=== PATIENT | female | born 1990 | race African-American/Black ===

== ENCOUNTER 2017-09-29 13:02 | Emergency (ER) | payer MEDICAID, OTHER | END 2017-09-29 14:32 | disposition home or self-care (01) | LOC: ERS 13:02 | DX: O98.912 Unspecified maternal infectious and parasitic disease complicating pregnancy, second trimester (principal); J10.1 Influenza due to other identified influenza virus with other respiratory manifestations; O99.332 Smoking (tobacco) complicating pregnancy, second trimester; F17.210 Nicotine dependence, cigarettes, uncomplicated; Z3A.20 20 weeks gestation of pregnancy | CPT/HCPCS: 87804; 99283 ==

== ENCOUNTER 2017-11-13 16:50 | Day surgery (SDC) | payer OTHER ==
[2017-11-13 17:18] VITALS: BP 101/58; TEMP 98.8; BMI 29.9
[2017-11-13] MEDS ORDERED: Ondansetron HCl/PF 4 MG/2 ML Vial IVP PRN (18:24)
[2017-11-13] MEDS ORDERED: Lactated Ringer's 1,000 ML IV SCH (18:30)
--- NOTE | 2017-11-13 18:35 | PDOC.LDHP ---
Labor and Delivery H&P Chief complaint: contractions HPI: 26 yo female at 26 weeks who presents with contractions every 3 -4 minutes for the last 2 hours. She has been having intermittent contractions this week before this. Today she has been busy, spending lots of time outside without much to eat or drink. She has not had bleeding or discharge. She has been feeling baby move normally. no fever or dysuria. Current gestational age (weeks): 26 (+4) Due date: 02/15/18 Dating criteria: last menstrual period, first trimester ultrasound Grav: 4 Para: 2 (2011) OB History Details: Patient does not have [facility] chart available, but she says she has had uncomplicated Current complications: none Abnormal US findings: No (per patient) Past Medical History: none - Physical Exam Vital signs reviewed and normal: yes General: NAD, resting Heart: RRR Lungs: nonlabored breathing Abdomen: gravid Extremeties: no edema FHT: category 1 [place] contractions every: 3-4 - Vaginal Exam cm dilated: 0 (fingertip) Effacement: 0% Station: -3 - OB Labs Blood type: A RH: positive Antibody Screen: negative HIV: negative RPR: negative HEPSAg: negative 1 hour GCT: negative (per patient) GBS: unknown - Assessment 1. contractions- Patient is having symptomatic and contractions on the monitor. This is likely 2/2 to dehydration. She has not made significant cervical change, so this is not labor. VP3 and UA pending as well. will treat dehydration/NV as below. We will send fibronectin and monitor ctx. If she begins to show more signs of labor we will initiate steroids and likely tocolysis. 2. Dehydration with NV- treat with IV zofran and IV bolus 1-2 L. can take po when she feels like she can tolerate it. - Plan Plan: admit to L&D, observation in L&D <Azam Leo - Last Filed: 11/13/17 18:56> <Ramírez Marks - Last Filed: 11/14/17 07:36> Allergies/Adverse Reactions: Allergies Allergy/AdvReac Type Severity Reaction Status Date / Time hydrocodone bitartrate Allergy Intermediate Anxiety Verified 11/13/17 17:18 [From Vicodin] Review of Systems - Review of Systems Constitutional: reports: no symptoms reported Respiratory: reports: no symptoms reported Cardiology: reports: no symptoms reported Gastrointestinal/Abdominal: reports: no symptoms reported Genitourinary: reports: no symptoms reported Musculoskeletal: reports: back pain Skin: reports: no symptoms reported Neurological: reports: no symptoms reported Endocrine: reports: no symptoms reported Hematologic/Lymphatic: reports: no symptoms reported All Other Systems: Reviewed and Negative <Ramírez Marks - Last Filed: 11/14/17 07:36> Attending Addendum - Attending Addendum Date/Time: 11/14/1736 I personally evaluated the patient and discussed the management with Dr. Leo I agree with the History, Examination, Assessment and Plan documented above with any addition or exceptions noted below. <Ramírez Marks Filed: 11/14/17 07:36>
[2017-11-13 18:40] LABS: Bilirubin Negative (Negative); Blood, Urine Negative (Negative); Clarity CLEAR (Clear); Glucose, Urine (Dipstick) Negative (Negative); Leukocyte Negative (Negative); Nitrite Negative (Negative); Protein, Urine (Dipstick) Negative (Neg-Trace); Specific Gravity, Urine 1.012 (1.002-1.036); pH, Urine 6.5 (5.0-9.0)
[2017-11-13 18:41] LABS: Bacteria/HPF None Seen HPF (None Seen); Hyaline Casts/LPF 0-3 HYALINE CAST LPF (0-3 Hyaline); Pathc Cast-AUWi Flag 0.43 (0-2.49); RBC/HPF 0-3 HPF (0-3); Squamous Epithelial 0-3 HPF (0-3); WBC/HPF None Seen HPF (0-3)
[2017-11-13 19:05] LABS: FFN Internal QC Analyzer PASS (PASS); FFN Internal QC Cassette PASS (PASS); Fetal Fibronectin Negative (Negative)
[2017-11-13] MEDS ORDERED: Acetaminophen 325 MG TAB PO SCH (20:45)
--- NOTE | 2017-11-13 20:55 | PDOC.EVN ---
Event Note - Event Note Event Note: Patient's ctx spaced out and eventually stopped. She tolerated PO. UA and fibronectin were negative. Appropriate for discharge. She will follow up at [facility].
== END 2017-11-13 20:39 | disposition home or self-care (01) ==
LOC: L&D/OP 16:50
PROVIDERS: ATTEND Obstetrics & Gynecology
DX: O47.02 False labor before 37 completed weeks of gestation, second trimester (principal); O99.89 Other specified diseases and conditions complicating pregnancy, childbirth and the puerperium; E86.0 Dehydration; Z3A.26 26 weeks gestation of pregnancy; Z79.899 Other long term (current) drug therapy; Z88.5 Allergy status to narcotic agent
CPT/HCPCS: 81001; 82731; 87480; 87510; 87660; J2405

== ENCOUNTER 2017-12-07 20:15 | Day surgery (SDC) | payer OTHER ==
[2017-12-07 20:48] VITALS: BP 105/60; TEMP 98.5; BMI 29.9
--- NOTE | 2017-12-07 21:45 | PDOC.LDHP ---
Labor and Delivery H&P Chief complaint: abdominal pain HPI: 27 yo @ 30.2 weeks dated by LMP c/w 1T US comes in after having about 2 hours of cramping pain in her pelvis and having a shooting pain down her Right leg. Says pain felt like some pressure. Says she didn't drink much water throughout the day. Says pain has since resolved and she is feeling like she wants to go home. Denies any vaginal discharge, irritation, itching. Denies any urinary sx's or burning with urination. Denies any N/V/D/C. Denies any headache. Denies any vision changes. Denies any numbness or tingling Current gestational age (weeks): 30 (2 days) Due date: 02/13/18 Dating criteria: last menstrual period Grav: 3 Para: 2 OB History Details: Tobacco Abuse Abnormal US findings: No Past Medical History: None Current medications: pre- vitamins Previous surgical history: none Social history: tobacco use (3-4 cigs a day) - Physical Exam General: NAD, resting Heart: RRR Lungs: CTAB Abdomen: NTTP Extremeties: no edema FHT: category 1 - OB Labs Blood type: A RH: positive Antibody Screen: negative HIV: negative RPR: negative HEPSAg: negative 1 hour GCT: negative GBS: unknown Rubella: immune - Assessment Round Ligament Pain - Plan Plan: observation in L&D -: @30.2 weeks comes in with pelvic pain and leg pain. Patient having Round ligament pain vs Ctx likely. Pain resolved at this time. Encouraged increased hydration. Advised can take tylenol for pain as needed. Pain resolved and patient would like to go home. Denies any vaginal or urinary sx's. No need for UA or VP3 at this time Tobacco abuse -counseled on cessation <Fazal Carias - Last Filed: 12/07/17 21:38> <Carmenza Arshad - Last Filed: 12/08/17 07:48> Allergies/Adverse Reactions: Allergies Allergy/AdvReac Type Severity Reaction Status Date / Time hydrocodone bitartrate Allergy Intermediate Anxiety Verified 12/07/17 21:04 [From Vicodin] Attending Addendum - Attending Addendum Date/Time: 12/08/17 2068 I personally evaluated the patient and discussed the management with Dr. Carias on 12/08/17. I agree with the History, Examination, Assessment and Plan documented above with any addition or exceptions noted below. Patient initially presented with right-sided sciatica and pelvic pressure, which have now resolved. NST reactive. +FM. Potentially due to positional changes of fetus. Denies dysuria, vaginal discharge. Now that she is asymptomatic, will discharge home with close follow up. RTC precautions discussed. <Carmenza Arshad - Last Filed: 12/08/17 07:48>
== END 2017-12-07 21:45 | disposition home or self-care (01) ==
LOC: L&D/OP 20:15
PROVIDERS: ATTEND Family Medicine
DX: O99.89 Other specified diseases and conditions complicating pregnancy, childbirth and the puerperium (principal); R10.2 Pelvic and perineal pain; O99.333 Smoking (tobacco) complicating pregnancy, third trimester; F17.210 Nicotine dependence, cigarettes, uncomplicated; Z3A.30 30 weeks gestation of pregnancy; Z88.5 Allergy status to narcotic agent; Z79.899 Other long term (current) drug therapy

== ENCOUNTER 2018-01-18 00:18 | Inpatient (IN) | payer OTHER ==
[2018-01-18 00:57] VITALS: BMI 31.3
[2018-01-18] MEDS: Lactated Ringer's 1,000 ML IV SCH ×2 (01:50→06:30)
[2018-01-18] MEDS ORDERED: Promethazine HCl 25 MG/ML VIAL IM PRN ×4 (01:55→10:38)
[2018-01-18] MEDS ORDERED: Acetaminophen 500 MG TAB PO PRN (01:55)
[2018-01-18] MEDS ORDERED: Ondansetron HCl/PF 4 MG/2 ML Vial IVP PRN ×4 (01:55→10:38)
[2018-01-18] MEDS ORDERED: Docusate 100 MG CAP PO PRN (01:55)
[2018-01-18] MEDS ORDERED: Lidocaine 1% (PF) 30 ML VIAL SC PRN ×2 (02:06→02:27)
[2018-01-18] MEDS ORDERED: NS / Oxytocin 40 units/1000ml 1,000 ML IV PRN ×2 (02:06→02:27)
[2018-01-18] MEDS ORDERED: NS w/ Oxytocin 10 units 500 ML IV SCH (02:15)
[2018-01-18 02:30] LABS: Hemoglobin 11.3 g/dL (12.0-16.0); Mean Corpuscular HGB CONC 35.2 g/dL (32.0-36.0); Mean Corpuscular Volume 85.1 fl (81.0-99.0); Mean Platelet Volume 11.3 fL (7.4-10.4); Platelet Count 118 thou/uL (130-400); RBC Distribution Width 12.7 % (11.5-14.5); Red Blood Cell (RBC) Count 3.76 mill/uL (4.20-5.40); White Blood Cell (WBC) Count 10.6 thou/uL (4.8-10.8)
[2018-01-18] MEDS ORDERED: Betamet Acet/Betamet Na Ph 30 MG/5 ML VIAL IM SCH (02:30)
[2018-01-18] MEDS ORDERED: Penicillin G Potassium 5 MILL.UNITS in Sodium Chloride 0.9% 100 ML IVPB SCH (02:30)
--- NOTE | 2018-01-18 02:58 | PDOC.LDHP ---
Labor and Delivery H&P Chief complaint: contractions, loss of fluid HPI: Patient presents to L&D floor 1 hour after large gush of fluids. She states she was feeling contractions every 5 min apart for about one hour than had a large carrillo of clear fluid with no blood. After this the contractions spaced out. She is still feeling baby moving. No bleeding. No dysuria. No headache, scotoma, SOB , or swelling. She was see at [facility] today and started on iron as well as treated for yeast infection. Dates by LMP confirmed by 1st trimester US. 2T US shows no anomalies, posterior placenta. Due date: 02/13/18 Dating criteria: last menstrual period, first trimester ultrasound Grav: 3 Para: 2 OB History Details: 2 term vaginal deliveries without complications per mother largest baby 8lb 2oz Current complications: none Abnormal US findings: No Past Medical History: Denies significant PMH Current medications: pre-bang vitamins, iron Previous surgical history: none Social history: tobacco use (quit early in per her report) - Physical Exam Vital signs reviewed and normal: yes General: NAD Heart: RRR Lungs: CTAB Abdomen: NTTP Extremeties: no edema FHT: category 1 - Vaginal Exam cm dilated: 3 Effacement: 50% Station: -3 - OB Labs Blood type: A RH: positive Antibody Screen: negative HIV: negative RPR: negative HEPSAg: negative 1 hour GCT: negative GBS: unknown Urine drug screen: negative Rubella: immune - Assessment L&D Assessment: premature rupture of membranes pre-term pre-labor ROM - Plan Plan: admit to L&D, anesthesia consult for pain management -: 26 yo female at 36 wk 2 days with prelabor ROM. Will admit and induce patient as risk of infection out-weighs benefits of waiting for spontaneous labor. # Pre-term Pre-labor ROM - pitocin for induction/augmentation - Penicillin as GBS status unknown - POC US shows cephalic presentation, posterior-fundal placenta - Betamethasone 12mg q 24 hr x2 doses - continuous monitoring - consult anesthesia for epidural placement - /-3 on presentation to L & D - LR 100 ml/hr - check amnisure to confirm ROM <Gamaliel Szymanski - Last Filed: 01/18/18 03:07> <Christina Damon - Last Filed: 01/18/18 07:29> Allergies/Adverse Reactions: Allergies Allergy/AdvReac Type Severity Reaction Status Date / Time hydrocodone bitartrate Allergy Intermediate Anxiety Verified 01/18/18 00:48 [From Vicodin] Attending Addendum - Attending Addendum Date/Time: 01/18/18724 I personally evaluated the patient and discussed the management with Dr. Szymanski. I agree with the History, Examination, Assessment and Plan documented above with any addition or exceptions noted below. 27 yo @ 36w2d dated by LMP and 11w3d US presenting with PPROM Steroids for lung maturity PCN for GBS unknown Augmentation pitocin per protocol Cephalic by bedside US Anticipate <Christina Damon - Last Filed: 01/18/18 07:29>
[2018-01-18 03:03] LABS: Hep B Surf Ag Non-Reactive S/CO (NonReactive)
[2018-01-18 04:29] LABS: Amnisure Test RUPTURE DETECTED (No Rupture)
[2018-01-18 04:30] LABS: Amnisure Internal Control QC ACCEPTABLE (ACCEPTABLE)
[2018-01-18] MEDS ORDERED: Butorphanol Tartrate 1 MG/ML VIAL SLOW IVP PRN (05:38)
[2018-01-18] MEDS ORDERED: Ondansetron ODT 4 MG TAB PO PRN (05:52)
[2018-01-18] MEDS ORDERED: DISCONTINUE ALL PREVIOUS NARCOTICS FS SCH (06:15)
[2018-01-18] MEDS ORDERED: Bupivacaine 0.5% 20 ML, fentaNYL Citrate/PF 400 MCG in Sodium Chloride 0.9% 72 ML EPIDURAL SCH (06:15)
[2018-01-18 06:16] LABS: Syphilis Antibody Nonreactive (Nonreactive); Syphilis Antibody Index 0.06 S/CO (<1.00 Non-Reactive)
[2018-01-18] MEDS: Penicillin G 2.5 MILL.units 2.5 MILL.UNITS in Premix Bag 1 BAG IVPB SCH ×2 (07:02→10:58)
[2018-01-18] MEDS ORDERED: Lactated Ringer's 500 ML IV PRN (07:04)
[2018-01-18] MEDS ORDERED: Naloxone HCl 0.4 mg/ml Vial IVP PRN ×2 (07:04)
[2018-01-18] MEDS ORDERED: ePHEDrine/0.9% NaCl/PF SYRINGE 50 mg/10 ml SLOW IVP PRN (07:04)
[2018-01-18] MEDS ORDERED: diphenhydrAMINE 50 MG/ML VIAL IVP PRN (07:04)
[2018-01-18] MEDS ORDERED: Eucerin (Mineral Oil/Petrolatum,White) 30 gm Jar TOP PRN (07:04)
[2018-01-18] MEDS ORDERED: Acetaminophen 325 MG TAB PO PRN (07:04)
[2018-01-18] MEDS ORDERED: Fentanyl 4mcg/Marcaine 0.1% Cassette 100 ML EPIDURAL SCH (07:15)
[2018-01-18] MEDS ORDERED: Communication Order-Pharmacy FS SCH (07:15)
[2018-01-18] MEDS ORDERED: Prenatal Vitamin 1 TAB PO SCH ×2 (10:38→11:00)
[2018-01-18] MEDS ORDERED: Milk Of Magnesia 30 ML UDCUP PO PRN (10:38)
[2018-01-18] MEDS ORDERED: Bisacodyl 10 MG SUPP PR PRN (10:38)
[2018-01-18] MEDS ORDERED: Adacel (T-DAP) 0.5 ML VIAL IM ONE (10:38)
[2018-01-18] MEDS ORDERED: Lanolin Ointment 7 GM TUBE TOP PRN (10:38)
[2018-01-18] MEDS ORDERED: NS / Oxytocin 40 units/1000ml 1,000 ML IV SCH (10:38)
[2018-01-18] MEDS ORDERED: Docusate Calcium (SURFAK) 240 MG CAP PO SCH ×2 (10:38→11:00)
[2018-01-18] MEDS ORDERED: Ferrous Sulfate 325 MG TAB PO SCH ×2 (10:38→11:00)
[2018-01-18] MEDS: Ferrous Sulfate 325 MG TAB PO SCH (10:57)
[2018-01-18] MEDS ORDERED: Bupivacaine 0.25% HCL 30 ML VIAL ONE (12:00)
--- NOTE | 2018-01-18 12:39 | PDOC.OPDEL ---
OB Operative/Delivery Note Delivery Dr/Surgeon: Marissa Assist: Octavio Pre-Delivery Diagnosis: ruptured membrane (PPROM) Procedure/Post Delivery Dx: spontaneous vaginal delivery Weeks gestation: 36 (36.2) Anesthesia: epidural - Findings A Sex: female - 1 min: 5 - 5 min: 7 - Additional Findings/Plan Placenta delivered: spontaneous Repaired Obstetrical Laceration: none Estimated blood loss: 150 mL Compilations/Other Findings: Pre-op Diagnosis: 1. Pre-term pre-labor ROM 2. GBS unknown Post-op Diagnosis: 1. sIUP, delivered 2. same as above Indications: A 27 y/o female presents with pre-term pre-labor ROM Delivery Note: This is 27 yo F @ 36.2 wks who delivered a viable F at 07:30 on 01/18/2018. Following an uneventful antepartum course, a female was delivered over an intact perineum in the occipitoanterior position. Anterior shoulder and then remainder of the body delivered. No nuchal cord. The head was held down and mouth and nares were bulb suctioned. Cord clamped and cut and cord blood collected. Placenta delivered intact with a 3 vessel cord noted. Fundal massage was performed and the fundus was firm. The cervix and vagina were inspected and found to be free of lacerations. required blow-by O2, but recovered well and went to nursery in good condition for routine care. Apgars were 5/7 at 1 & 5 minutes, respectively. Patient tolerated delivery well and went to after routine recovery/care. Post delivery plan: routine recovery <Orquidea Ann - Last Filed: 01/18/18 17:04> Attending Addendum - Attending Addendum Date/Time: 01/18/18 1712 late entry from 0800 am on same day I personally supervised Dr. Ann perform of Cherrie a 27 y/o at 36.2 weeks who presented with PPROM. Augmented with pitocin and progressed to complete. GBS unknown but treated with PCN x 2 doses because . EBL 200 ml. 5/7/9. Required blow-by O2 temporarily. No lacerations and fundus firm with pitocin. No immediate complications. <Kaylen Cunningham - Last Filed: 01/18/18 17:14>
[2018-01-18] MEDS: Ibuprofen 800 MG TAB PO SCH ×2 (12:56→21:14)
[2018-01-18] MEDS ORDERED: Diclofenac Sodium 25 mg Tablet PO PRN (18:58)
[2018-01-18] MEDS: Acetaminophen/Codeine 30-300mg Tablet PO PRN (19:20)
[2018-01-18] MEDS: Docusate Calcium (SURFAK) 240 MG CAP PO SCH (21:14)
[2018-01-19] MEDS: Ibuprofen 800 MG TAB PO SCH ×3 (05:33→21:11)
--- NOTE | 2018-01-19 07:09 | PDOC.PP ---
Post Progress Note Post Day #: 1 Subjective: Patient doing well this AM. No significant overnight events. Ambulating without difficulty. Tolerating PO. Lochia wnl. Pain well controlled. PO intake tolerated: yes Flatus: yes Ambulation: yes Vital Signs (12 hours) Temp Pulse Resp BP BP 01/19/18 04:00 98.4 F 70 16 94/55 L 01/19/18 00:00 97.6 F 61 16 87/43 L 01/18/18 20:00 97.9 F 52 L 16 98/58 L Weight Weight 80.286 kg - Physical Examination General: NAD Cardiovascular: no m/r/g, RRR Respiratory: clear to auscultation bilaterally, non-labored breathing Abdominal: + bowel sounds, lochia (wnl), no distention, appropriately TTP Fundus firm & at: below umbilicus Neurological: no gross focal deficits Psychiatric: A&Ox3, normal affect Result Diagrams: 01/18/18 01:50 Additional Labs: Post Labs Blood Type A POSITIVE 01/18/18 01:50 Hep Bs Antigen Non-Reactive S/CO (NonReactive) 01/18/18 01:50 (1) premature rupture of membranes (PPROM) delivered, current hospitalization Code(s): O42.919 - PRETRM JERED ROM, UNSP TIME BETW RUPT AND ONST LABR, UNSP TRI Status: Acute - Assessment/Plan 27 year old female at 36.2 wks presented with PPROM. Delivered premature at 07:30 on 01/18/2018. required blow-by oxygen but responded well. Apgars 5/7/9. pre-labor rupture of membranes s/p delivery - Routine PP care - Monitor VS; Low BP overnight to 87/43, patient reportedly asymptomatic - no complaints today and reports BP always runs low - Discuss PP contraception - Encourage continued - Counseled mother on keeping infant wrapped up as is having a hard time maintaining temperature Dispo: Anticipate LOS >48 hours. Will obs infant for 48 hours due to prematurity. <Orquidea Ann - Last Filed: 01/19/18 12:46> Vital Signs (12 hours) Temp Pulse Resp BP 01/19/18 12:11 98.9 F 72 18 01/19/18 08:10 98.9 F 72 18 99/55 L 01/19/18 08:00 98.9 F 72 18 Weight Weight 80.286 kg Result Diagrams: 01/18/18 01:50 Additional Labs: Post Labs Blood Type A POSITIVE 01/18/18 01:50 Hep Bs Antigen Non-Reactive S/CO (NonReactive) 01/18/18 01:50 <Louis Chandra - Last Filed: 01/19/18 16:47> Attending Addendum - Attending Addendum Date/Time: 01/19/18 5765 I personally evaluated the patient and discussed the management with Dr. Ann. I agree with the History, Examination, Assessment and Plan documented above with any addition or exceptions noted below. <Louis Chandra - Last Filed: 01/19/18 16:47>
[2018-01-19] MEDS: Prenatal Vitamin 1 TAB PO SCH (08:25)
[2018-01-19] MEDS: Docusate Calcium (SURFAK) 240 MG CAP PO SCH ×2 (08:25→21:11)
[2018-01-19] MEDS: Acetaminophen/Codeine 30-300mg Tablet PO PRN ×2 (08:26→19:41)
[2018-01-19] MEDS: Ferrous Sulfate 325 MG TAB PO SCH ×2 (08:27→17:24)
[2018-01-20] MEDS: Ibuprofen 800 MG TAB PO SCH ×2 (05:30→13:35)
[2018-01-20] MEDS: Acetaminophen/Codeine 30-300mg Tablet PO PRN (08:55)
[2018-01-20] MEDS: Docusate Calcium (SURFAK) 240 MG CAP PO SCH (08:55)
[2018-01-20] MEDS: Prenatal Vitamin 1 TAB PO SCH (08:55)
--- NOTE | 2018-01-20 10:20 | PDOC.PP ---
Post Progress Note Post Day #: 2 Subjective: Patient doing well this AM. No significant overnight events. Tolerating PO. Ambulating without difficulty. Pain well controlled. Bleeding increased a little from yesterday. Denies headache, shortness of breath, chest pain, dizziness. PO intake tolerated: yes Flatus: yes Ambulation: yes Weight Weight 80.286 kg - Physical Examination General: NAD Cardiovascular: no m/r/g, RRR Respiratory: clear to auscultation bilaterally, non-labored breathing Abdominal: + bowel sounds, lochia (Increased from yesterday, but wnl), no distention, appropriately TTP Neurological: no gross focal deficits Psychiatric: A&Ox3, normal affect Result Diagrams: 01/18/18 01:50 Additional Labs: Post Labs Blood Type A POSITIVE 01/18/18 01:50 Hep Bs Antigen Non-Reactive S/CO (NonReactive) 01/18/18 01:50 (1) premature rupture of membranes (PPROM) delivered, current hospitalization Code(s): O42.919 - PRETRM JERED ROM, UNSP TIME BETW RUPT AND ONST LABR, UNSP TRI Status: Acute - Assessment/Plan 27 year old female at 36.2 wks presented with PPROM. Delivered premature infant at 07:30 on 01/18/2018. Infant required blow-by oxygen but responded well. Apgars 5/7/9. pre-labor rupture of membranes s/p delivery - Routine PP care - VS stable - Discuss PP contraception; pt to [facility] up at [facility] 2 [facility] - Encourage continued - Counseled mother on keeping infant wrapped up to assist in maintaining temperature - F/U at [facility] in 2 weeks Dispo: to be observed for one more day. Will discharge patient to [facility] and Breakfast program. <Orquidea Ann - Last Filed: 01/20/18 10:20> Vital Signs (12 hours) Temp Pulse Resp BP 01/20/18 08:00 97.6 F 60 18 104/50 L Weight Weight 80.286 kg Result Diagrams: 01/18/18 01:50 Additional Labs: Post Labs Blood Type A POSITIVE 01/18/18 01:50 Hep Bs Antigen Non-Reactive S/CO (NonReactive) 01/18/18 01:50 <Cunningham,Kaylen Vanesa - Last Filed: 01/20/18 10:46> Attending Addendum - Attending Addendum Date/Time: 01/20/18 3537 I personally evaluated the patient and discussed the management with Dr. Ann I agree with the History, Examination, Assessment and Plan documented above with any addition or exceptions noted below. ppd #2- recovering well. Fundus below umbilicus with appropriate bleeding noted. Stable for d/c home <Kaylen Cunningham - Last Filed: 01/20/18 10:46>
[2018-01-20 10:36] VITALS: BP 104/50; TEMP 97.6
[2018-01-20] MEDS: Ferrous Sulfate 325 MG TAB PO SCH ×2 (10:45→16:57)
== END 2018-01-20 18:13 | disposition home or self-care (01) | DRG 775 ==
LOC: L&D/OP 00:18 → L&D 05:34 → 3SW 10:15
PROVIDERS: ADMIT Family Medicine; ATTEND Family Medicine
PROC: 10E0XZZ Delivery of Products of Conception, External Approach (ICD-10-PCS; principal; 2018-01-18)
DX: O42.913 Preterm premature rupture of membranes, unspecified as to length of time between rupture and onset of labor, third trimester (principal); Z37.0 Single live birth; Z3A.36 36 weeks gestation of pregnancy; Z87.891 Personal history of nicotine dependence
CPT/HCPCS: 84112; 85027; 86780; 86850; 86900; 86901; 87340; 99285; J0595; J0702; J2001; J2540; J3010; J3490; J7050; Q0162; S0020

== ENCOUNTER 2019-11-04 16:33 | Emergency (ER) | payer OTHER ==
[2019-11-04] MEDS ORDERED: Sodium Chloride 0.9% 100 ML ONE (17:45)
[2019-11-04] MEDS ORDERED: Metoclopramide HCl 10 MG/2 ML VIAL ONE (17:45)
[2019-11-04] MEDS ORDERED: diphenhydrAMINE 50 MG/ML VIAL ONE (17:45)
[2019-11-04 17:50] LABS: #Basophils 0.1 thou/uL (0.0-0.2); #Eosinphils 0.4 thou/uL (0.0-0.7); #Lymphocytes 2.7 thou/uL (1.20-3.40); #Monocytes 0.6 thou/uL (0.11-0.59); #Neutrophils 5.1 thou/uL (1.40-6.50); %Basophils 1.2 % (0.0-1.0); %Eosinophils 4.9 % (0.0-10.0); %Lymphocytes 29.9 % (21.0-51.0); %Monocytes 6.9 % (0.0-10.0); %Neutrophils 57.1 % (42.0-75.0); Hemoglobin 12.5 g/dL (12.0-16.0); Mean Corpuscular HGB CONC 33.5 g/dL (32.0-36.0); Mean Corpuscular Hemoglobin 29.3 pg (27.0-31.0); Mean Corpuscular Volume 87.5 fL (78.0-98.0); Platelet Count 176 thou/uL (130-400); RBC Distribution Width 12.6 % (11.5-14.5); Red Blood Cell (RBC) Count 4.25 mill/uL (4.20-5.40); White Blood Cell (WBC) Count 8.9 thou/uL (4.8-10.8)
--- NOTE | 2019-11-04 18:00 | RAD ---
EXAM: Single view of the chest HISTORY: Headache and dizziness COMPARISON: None FINDINGS: Single view of the chest shows a normal sized cardiomediastinal silhouette. There is no favio dence of consolidation, mass, or pleural effusion. The bones are unremarkable. IMPRESSION: No evidence of acute cardiopulmonary disease
[2019-11-04 18:13] LABS: ALT (SGPT) 8 U/L (8-55); AST (SGOT) 11 U/L (5-34); Albumin 3.7 g/dL (3.5-5.0); Alkaline Phosphatase 63 U/L (40-110); Anion Gap 13 mmol/L (10-20); BUN (Urea Nitrogen) 10 mg/dL (7.0-18.7); Bilirubin, Total 0.3 mg/dL (0.2-1.2); Calc. Creatinine Clearance 0 mL/min (70-130); Calcium 8.7 mg/dL (7.8-10.44); Carbon Dioxide 25 mmol/L (22-29); Chloride 108 mmol/L (98-107); Estimated GFR-MDRD Greater than 90; Glucose 87 mg/dL (70-105); Potassium 4.7 mmol/L (3.5-5.1); Protein, Total 6.7 g/dL (6.0-8.3); Sodium 141 mmol/L (136-145)
--- NOTE | 2019-11-04 18:40 | CT ---
HEAD CT WITHOUT CONTRAST: History: Headache x five days. Dizziness. Lightheadedness. Comparison: 02-04-08 FINDINGS: No parenchymal hemorrhage. No extraaxial hematoma. No midline shift. Basilar cisterns are patent. Brain volume age appropriate. Cortical cary white matter differentiation preserved. No hydrocephalus. Adequate aeration of the mastoid air cells. Opacification of the majority of the visualized paranasal sinuses. Intact calvarium. IMPRESSION: 1. Sinus disease. 2. No acute intracranial process. POS: PPP
[2019-11-04] MEDS ORDERED: Ketorolac Tromethamine 30 MG/ML VIAL ONE (19:11)
== END 2019-11-04 19:29 | disposition home or self-care (01) ==
LOC: ERS 16:33
DX: J32.9 Chronic sinusitis, unspecified (principal); F41.9 Anxiety disorder, unspecified; F31.9 Bipolar disorder, unspecified; F17.210 Nicotine dependence, cigarettes, uncomplicated
CPT/HCPCS: 36415; 70450; 71045; 80053; 85025; 87804; 96365; 96375; J1200; J1885; J2765; J3490

== ENCOUNTER 2020-11-21 13:53 | Emergency (ER) | payer BC, SELFPAY ==
[2020-11-21] MEDS ORDERED: Ketorolac Tromethamine 30 MG/ML VIAL ONE (15:39)
== END 2020-11-21 16:07 | disposition home or self-care (01) ==
LOC: ERS 13:53
DX: M25.562 Pain in left knee (principal); X50.1XXA Overexertion from prolonged static or awkward postures, initial encounter
CPT/HCPCS: 96372; J1885

== ENCOUNTER 2021-07-24 11:21 | Emergency (ER) | payer SELFPAY ==
[2021-07-24 12:12] LABS: #Monocytes 0.4 thou/uL (0.11-0.59); #Neutrophils 5.3 thou/uL (1.40-6.50); %Basophils 0.3 % (0.0-1.0); %Eosinophils 0.6 % (0.0-10.0); %Lymphocytes 14.7 % (21.0-51.0); %Monocytes 5.4 % (0.0-10.0); Hemoglobin 13.6 g/dL (12.0-16.0); Mean Corpuscular HGB CONC 34.1 g/dL (32.0-36.0); Mean Corpuscular Hemoglobin 30.2 pg (27.0-31.0); Mean Corpuscular Volume 88.7 fL (78.0-98.0); Mean Platelet Volume 9.6 fL (7.4-10.4); Platelet Count 147 thou/uL (130-400); RBC Distribution Width 12.5 % (11.5-14.5); Red Blood Cell (RBC) Count 4.51 mill/uL (4.20-5.40); White Blood Cell (WBC) Count 6.7 thou/uL (4.8-10.8)
[2021-07-24 12:38] LABS: ALT (SGPT) 16 U/L (8-55); AST (SGOT) 19 U/L (5-34); Albumin 3.8 g/dL (3.5-5.0); Alkaline Phosphatase 71 U/L (40-110); Anion Gap 10 mmol/L (10-20); BUN (Urea Nitrogen) 11 mg/dL (7.0-18.7); Bilirubin, Total 1.6 mg/dL (0.2-1.2); Calc. Creatinine Clearance 0 mL/min (70-130); Calcium 9.1 mg/dL (7.8-10.44); Carbon Dioxide 26 mmol/L (22-29); Chloride 109 mmol/L (98-107); Globulin 3.1 g/dL (2.4-3.5); Glucose 89 mg/dL (70-105); Lipase 28 U/L (8-78); Potassium 4.6 mmol/L (3.5-5.1); Protein, Total 6.9 g/dL (6.0-8.3); Sodium 140 mmol/L (136-145)
[2021-07-24] MEDS ORDERED: Mag-Al 1200 mg/1200 mg/30 ML UDCUP ONE (12:46)
[2021-07-24] MEDS ORDERED: Lidocaine Viscous Sol 2% 15 ml UD Cup ONE (12:46)
[2021-07-24] MEDS ORDERED: Ondansetron ODT 4 MG TAB ONE (12:46)
[2021-07-24 13:17] LABS: Bacteria/HPF None Seen HPF (None Seen); Bilirubin Negative (Negative); Blood, Urine 2+ (Negative); Clarity Clear (Clear); Glucose, Urine (Dipstick) Normal (Negative); Ketone, Urine Negative (Negative); Leukocyte Negative Leu/uL (Negative); Nitrite Negative (Negative); Protein, Urine (Dipstick) Negative (Neg-Trace); RBC/HPF 0-3 HPF (0-3); Specific Gravity, Urine 1.017 (1.002-1.036); Squamous Epithelial 0-3 HPF (0-3); Urobilinogen Normal mg/dL (Less than 2); WBC/HPF 0-3 HPF (0-3); pH, Urine 6.5 (5.0-9.0)
[2021-07-24 13:18] LABS: Pregnancy Test - Urine (BHCG) Negative (Negative); Pregu Control Background? CLEAR/WHITE (CLR/WHITE); Pregu Control Bar Appear? YES (CONTROL BAR); Specific Gravity 1.017 (1.002-1.036)
== END 2021-07-24 14:01 | disposition home or self-care (01) ==
LOC: ERS 11:21
DX: R10.13 Epigastric pain (principal); F17.210 Nicotine dependence, cigarettes, uncomplicated
CPT/HCPCS: 36415; 80053; 81003; 81015; 81025; 83690; 85025; 99284; Q0162

== ENCOUNTER 2022-04-13 07:00 | Emergency (ER) | payer OTHER ==
[2022-04-13] MEDS ORDERED: Ketorolac Tromethamine 30 MG/ML VIAL ONE (08:08)
[2022-04-13 08:15] LABS: #Eosinphils 0.3 thou/uL (0.0-0.7); #Lymphocytes 1.9 thou/uL (1.20-3.40); #Monocytes 0.4 thou/uL (0.11-0.59); #Neutrophils 3.1 thou/uL (1.40-6.50); %Basophils 0.5 % (0.0-1.0); %Eosinophils 5.9 % (0.0-10.0); %Lymphocytes 32.5 % (21.0-51.0); %Monocytes 6.9 % (0.0-10.0); %Neutrophils 54.2 % (42.0-75.0); Hemoglobin 12.4 g/dL (12.0-16.0); Mean Corpuscular HGB CONC 32.9 g/dL (32.0-36.0); Mean Corpuscular Hemoglobin 29.6 pg (27.0-31.0); Mean Corpuscular Volume 89.8 fL (78.0-98.0); Mean Platelet Volume 10.4 fL (7.4-10.4); Platelet Count 134 thou/uL (130-400); RBC Distribution Width 12.7 % (11.5-14.5); Red Blood Cell (RBC) Count 4.18 mill/uL (4.20-5.40); White Blood Cell (WBC) Count 5.7 thou/uL (4.8-10.8)
[2022-04-13 08:21] LABS: BHCG - Serum Negative (NEGATIVE); Pregs Control Background? CLEAR/WHITE (CLR/WHITE); Pregs Control Bar Appear? YES (CONTROL BAR)
[2022-04-13 08:38] LABS: ALT (SGPT) 9 U/L (8-55); AST (SGOT) 14 U/L (5-34); Albumin 3.7 g/dL (3.5-5.0); Alkaline Phosphatase 60 U/L (40-110); Anion Gap 12 mmol/L (10-20); BUN (Urea Nitrogen) 11 mg/dL (7.0-18.7); Bilirubin, Total 0.6 mg/dL (0.2-1.2); Calc. Creatinine Clearance 0 mL/min (70-130); Calcium 8.5 mg/dL (7.8-10.44); Carbon Dioxide 24 mmol/L (22-29); Chloride 108 mmol/L (98-107); Estimated GFR 110; Globulin 2.6 g/dL (2.4-3.5); Glucose 86 mg/dL (70-105); Potassium 4.2 mmol/L (3.5-5.1); Protein, Total 6.3 g/dL (6.0-8.3); Sodium 140 mmol/L (136-145)
== END 2022-04-13 09:15 | disposition home or self-care (01) ==
LOC: ERS 07:00
DX: N94.6 Dysmenorrhea, unspecified (principal); D64.9 Anemia, unspecified; F17.210 Nicotine dependence, cigarettes, uncomplicated
CPT/HCPCS: 36415; 80053; 84703; 85025; 96372; 99284; J1885

== ENCOUNTER 2022-09-09 17:29 | Emergency (ER) | payer OTHER ==
[2022-09-09] MEDS ORDERED: Ondansetron ODT 4 MG TAB ONE (18:11)
[2022-09-09 18:43] LABS: Hemoglobin 12.6 g/dL (12.0-16.0); Mean Corpuscular HGB CONC 35.1 g/dL (32.0-36.0); Mean Corpuscular Hemoglobin 30.6 pg (27.0-31.0); Mean Corpuscular Volume 87.3 fl (78.0-98.0); Mean Platelet Volume 9.7 fL (7.4-10.4); Platelet Count 177 10x3/uL (130-400); RBC Distribution Width 12.2 % (11.5-14.5); White Blood Cell (WBC) Count 9.5 10x3/uL (4.8-10.8)
[2022-09-09 18:56] LABS: ALT (SGPT) 17 U/L (8-55); AST (SGOT) 17 U/L (5-34); Albumin 4.1 g/dL (3.5-5.0); Alkaline Phosphatase 68 U/L (40-110); Anion Gap 14 mmol/L (10-20); BUN (Urea Nitrogen) 11 mg/dL (7.0-18.7); Bilirubin, Total 1.3 mg/dL (0.2-1.2); Calc. Creatinine Clearance 0 mL/min (70-130); Calcium 9.1 mg/dL (7.8-10.44); Carbon Dioxide 23 mmol/L (22-29); Chloride 101 mmol/L (98-107); Estimated GFR 120; Globulin 3.1 g/dL (2.4-3.5); Glucose 85 mg/dL (70-105); Lipase 27 U/L (8-78); Protein, Total 7.2 g/dL (6.0-8.3); Sodium 134 mmol/L (136-145)
[2022-09-09 19:04] LABS: Pregnancy Test - Urine (BHCG) POSITIVE (Negative); Pregu Control Background? CLEAR/WHITE (CLR/WHITE); Pregu Control Bar Appear? YES (CONTROL BAR); Specific Gravity 1.018 (1.002-1.036)
[2022-09-09 19:05] LABS: Bilirubin Negative (Negative); Blood, Urine Negative (Negative); Clarity Turbid (Clear); Glucose, Urine (Dipstick) Normal (Negative); Ketone, Urine 40 mg/dL (Negative); Leukocyte 75 Leu/uL (Negative); Nitrite Negative (Negative); Protein, Urine (Dipstick) 10 mg/dL (Neg-Trace); RBC/HPF 0-3 HPF (0-3); Specific Gravity, Urine 1.018 (1.002-1.036); Squamous Epithelial 21-50 HPF (0-3); Urobilinogen Normal mg/dL (Less than 2); WBC/HPF 0-3 HPF (0-3)
[2022-09-09 19:06] LABS: Bacteria/HPF 1+ HPF (None Seen)
[2022-09-09 19:11] LABS: Eosinophils 2 % (0-10); Lymphocytes 32 % (21-51); MDiff Complete? YES; Monocytes 5 % (0-10); Neutrophil 59 % (42-75); RBC Morphology Normal; Reactive Lymphocytes 2 % (0-10)
== END 2022-09-09 20:03 | disposition home or self-care (01) ==
LOC: ERS 17:29
DX: O26.891 Other specified pregnancy related conditions, first trimester (principal); F17.210 Nicotine dependence, cigarettes, uncomplicated; Z3A.01 Less than 8 weeks gestation of pregnancy
CPT/HCPCS: 80053; 81003; 81015; 81025; 83690; 84702; 85025; 99284; Q0162

== ENCOUNTER 2022-10-10 10:08 | Emergency (ER) | payer MEDICAID, OTHER ==
[2022-10-10 11:00] LABS: #Basophils 0.1 thou/uL (0.0-0.2); #Eosinphils 0.1 thou/uL (0.0-0.7); #Lymphocytes 1.8 thou/uL (1.20-3.40); #Monocytes 0.6 thou/uL (0.11-0.59); #Neutrophils 7.7 thou/uL (1.40-6.50); %Eosinophils 0.8 % (0.0-10.0); %Lymphocytes 17.8 % (21.0-51.0); %Neutrophils 74.4 % (42.0-75.0); Hemoglobin 12.8 g/dL (12.0-16.0); Mean Corpuscular HGB CONC 34.3 g/dL (32.0-36.0); Mean Corpuscular Volume 87.6 fl (78.0-98.0); Mean Platelet Volume 10.1 fL (7.4-10.4); Platelet Count 168 10x3/uL (130-400); RBC Distribution Width 13.5 % (11.5-14.5); Red Blood Cell (RBC) Count 4.25 mill/uL (4.20-5.40); White Blood Cell (WBC) Count 10.3 10x3/uL (4.8-10.8)
[2022-10-10 11:11] LABS: Albumin 3.7 g/dL (3.5-5.0)
[2022-10-10 11:12] LABS: Chloride 107 mmol/L (98-107)
[2022-10-10 11:13] LABS: Calcium 9.1 mg/dL (7.8-10.44); Sodium 135 mmol/L (136-145)
[2022-10-10 11:14] LABS: Globulin 3.1 g/dL (2.4-3.5); Glucose 86 mg/dL (70-105); Protein, Total 6.8 g/dL (6.0-8.3)
[2022-10-10 11:15] LABS: Anion Gap 15 mmol/L (10-20); Carbon Dioxide 17 mmol/L (22-29)
[2022-10-10] MEDS ORDERED: Promethazine HCl 6.25 MG in Sodium Chloride 0.9% 50 ML IVPB SCH (11:15)
[2022-10-10 11:16] LABS: Bilirubin, Total 1.2 mg/dL (0.2-1.2)
[2022-10-10 11:17] LABS: Alkaline Phosphatase 57 U/L (40-110); Calc. Creatinine Clearance 0 mL/min (70-130); Estimated GFR 125
[2022-10-10 11:18] LABS: BUN (Urea Nitrogen) 7 mg/dL (7.0-18.7)
[2022-10-10 11:19] LABS: AST (SGOT) 19 U/L (5-34)
[2022-10-10 11:20] LABS: ALT (SGPT) 19 U/L (8-55)
[2022-10-10 11:38] LABS: Lipase 30 U/L (8-78)
[2022-10-10 11:48] LABS: Bilirubin Negative (Negative); Blood, Urine Negative (Negative); Clarity Clear (Clear); Glucose, Urine (Dipstick) Normal (Negative); Ketone, Urine Negative (Negative); Leukocyte Negative Leu/uL (Negative); Nitrite Negative (Negative); Protein, Urine (Dipstick) Negative (Neg-Trace); Specific Gravity, Urine 1.015 (1.002-1.036); Urobilinogen Normal mg/dL (Less than 2)
== END 2022-10-10 13:10 | disposition home or self-care (01) ==
LOC: ERS 10:08
DX: O21.0 Mild hyperemesis gravidarum (principal); O26.92 Pregnancy related conditions, unspecified, second trimester; F17.210 Nicotine dependence, cigarettes, uncomplicated; Z3A.00 Weeks of gestation of pregnancy not specified
CPT/HCPCS: 36415; 80053; 81003; 83690; 85025; 86900; 86901; 96361; 96374; J2550

== ENCOUNTER 2022-11-11 21:48 | Emergency (ER) | payer OTHER ==
[2022-11-11] MEDS ORDERED: Bicillin LA 2.4 MILL.UNITS/4 ML SYRINGE ONE (23:01)
[2022-11-11] MEDS ORDERED: Bicillin LA 1.2 MILLION UNITS/2 ML SYRINGE ONE (23:03)
== END 2022-11-11 23:18 | disposition home or self-care (01) ==
LOC: ERS 21:48
DX: J02.9 Acute pharyngitis, unspecified (principal); F17.210 Nicotine dependence, cigarettes, uncomplicated
CPT/HCPCS: 87081; 87430; 96372; 99283; J0561

== ENCOUNTER 2024-02-21 14:29 | Emergency (ER) | payer OTHER ==
[2024-02-21 15:04] LABS: #Basophils Less than 0.03 10x3/uL (0.0-0.2); %Basophils 0.2 % (0.0-1.0); %Lymphocytes 22.2 % (21.0-51.0); %Monocytes 8.3 % (0.0-10.0); %Neutrophils 67.6 % (42.0-75.0); Hematocrit 29.2 % (36.0-47.0); Hemoglobin 10.1 g/dL (12.0-16.0); Mean Corpuscular HGB CONC 34.6 g/dL (32.0-36.0); Mean Corpuscular Hemoglobin 28.9 pg (27.0-31.0); Mean Corpuscular Volume 83.7 fL (78.0-98.0); Mean Platelet Volume 13.9 fL (7.4-10.4); Platelet Count 117 10x3/uL (130-400); RBC Distribution Width 12.9 % (11.5-14.5); Red Blood Cell (RBC) Count 3.49 mill/uL (4.20-5.40)
[2024-02-21 15:21] LABS: ALT (SGPT) 30 U/L (8-55); AST (SGOT) 25 U/L (5-34); Albumin 2.8 g/dL (3.5-5.0); Alkaline Phosphatase 219 U/L (40-110); Anion Gap 14 mmol/L (10-20); BUN (Urea Nitrogen) 6 mg/dL (7.0-18.7); Bilirubin, Total 0.6 mg/dL (0.2-1.2); Calc. Creatinine Clearance 0 mL/min (70-130); Calcium 8.4 mg/dL (7.8-10.44); Carbon Dioxide 18 mmol/L (22-29); Chloride 108 mmol/L (98-107); Estimated GFR 121; Globulin 4.1 g/dL (2.4-3.5); Glucose 75 mg/dL (70-105); Potassium 3.8 mmol/L (3.5-5.1); Protein, Total 6.9 g/dL (6.0-8.3); Sodium 136 mmol/L (136-145)
[2024-02-21 15:26] LABS: Anisocytosis SLIGHT = 6-15 cells HPF (0-5); Platelet Adequacy Comment Platelets Decreased; Poikilocytosis SLIGHT = 6-15 cells HPF (0-5)
== END 2024-02-21 15:36 | disposition short-term general hospital (02) ==
LOC: ERS 14:29
DX: O60.03 Preterm labor without delivery, third trimester (principal); Z3A.36 36 weeks gestation of pregnancy
CPT/HCPCS: 80053; 85025; 86850; 86900; 86901

== ENCOUNTER 2024-03-12 18:36 | Emergency (ER) | payer OTHER | END 2024-03-12 19:10 | disposition left against medical advice (07) | LOC: ERS 18:36 | DX: Z53.21 Procedure and treatment not carried out due to patient leaving prior to being seen by health care provider (principal) ==